=== PATIENT | male | born 1975 | race Caucasian/White ===

== ENCOUNTER 2020-06-17 21:36 | Emergency (ER) | payer MEDICARE ==
[~2020-06-17] VITALS: Ht 172.7 cm; Wt 78.0 kg
[2020-06-17 22:08] VITALS: BP 152/90
== END 2020-06-18 08:35 | disposition left against medical advice (07) ==
LOC: ER 21:36
DX: Z53.21 Procedure and treatment not carried out due to patient leaving prior to being seen by health care provider (principal)